=== PATIENT | male | born 1965 | race Caucasian/White ===

== ENCOUNTER 2020-02-12 11:34 | Outpatient (CLI) | payer BC, SELFPAY ==
--- NOTE | ~2020-02-12 | XR_ITS ---
EXAMINATION: XR knee LT 3V DATE: 02/12/2020 11:49 INDICATION: Left knee pain, initial encounter TECHNIQUE: Three views of the left knee were obtained. COMPARISON: None. FINDINGS: Alignment is normal. No fracture or osteochondral lesion. There is mild tricompartmental os teoarthritis characterized by tiny marginal osteophytes. There is a moderate size knee joint effusion . An enthesophyte projects from the cranial pole of the patella. Soft tissues are unremarkable. IMPRESSION: 1. No acute osseous abnormality. Reviewed, dictated and finalized at location A.
== END 2020-02-12 11:35 | disposition home or self-care (01) ==
LOC: ANHIMG 11:38
PROVIDERS: PCP Family Medicine; Visit Provider Nurse Practitioner Family
DX: M25.562 Pain in left knee (principal)
CPT/HCPCS: 73562

== ENCOUNTER 2020-07-30 00:30 | Outpatient (CLI) | payer BC, SELFPAY ==
[2020-07-30 18:59] LABS: SARS-CoV-2 RNA PCR Negative
== END 2020-07-30 00:31 | disposition home or self-care (01) ==
LOC: ANHCOVIDDT 00:30
PROVIDERS: PCP Family Medicine; Visit Provider Internal Medicine Gastroenterology
DX: Z01.812 Encounter for preprocedural laboratory examination (principal); Z20.828 Contact with and (suspected) exposure to other viral communicable diseases
CPT/HCPCS: 87635; C9803; U0003

== ENCOUNTER 2020-08-02 00:50 | Day surgery (SDC) | payer BC, SELFPAY ==
[2020-07-26 14:06] VITALS: BMI 27.1
[2020-08-02 08:34] VITALS: BMI 26.6
[2020-08-02 08:38] VITALS: BP 127/92; PULSE 67; RESP 14; TEMP 36.4; O2SAT 98
--- NOTE | 2020-08-02 08:40 | WPDANESEPPF ---
Anes - Initial Pre Proc Eval Procedure: Operation Date: 08/02/20 09:30 Proposed Procedures p Screening Colonoscopy - Koko Stokes MD Date/Time: 08/02/20 08:40 Surgeon: Koko Stokes MD Pre Op Diagnosis: Neoplasm Screening Patient Data Age: 55 Gender: M Height: 6 ft Weight: 89.1 kg Allergies Allergy/AdvReac Type Severity Reaction Status Date / Time Penicillins Allergy Unknown Hives Verified 08/02/20 08:32 Home Medications Medication Instructions Recorded Confirmed Type tadalafil 20 mg tablet 20 mg PO DAILY PRN #30 tablet 09/03/19 08/02/20 Rx Patient hx anesthesia problems: none Family hx anesthesia problems: none PMFSH Past Medical History Medical History (Updated 07/04/20 @ 11:26 by Chilo Rivera MD) Onychomycosis Screen for colon cancer Screening for prostate cancer Tinea pedis Family History Family History Mother Family history of pancreatic cancer Patient's mother is Other Hypertension Social History Social History Smoking status: Never smoker Alcohol intake: current Drinks per week: 6 Substance use: current Substance use type: marijuana Other substance usage details: 2-3 times a month smokes marijuana Living arrangements: alone Spiritual care concerns: No Anes - Eval Final PreProcedure Day of Procedure 08/02/20 08:40 Patient weight: normal Heart: regular rate and rhythm Lungs: clear to auscultation Airway: Mallampati scale class II Neurological: alert and oriented Last oral intake: >/= 8 hours ASA classification: II Emergent: no Anesthetic plan: proceed Anesthesia type and monitoring: general GIVS and standard monitoring Informed Consent: The patient's anesthetic plan and its attendant risks and benefits were discussed with the patient/family/POA. Questions were solicited and answers provided to the satisfaction of the patient/family/POA.
[2020-08-02] MEDS: LACTATED RINGERS 1,000 ML 150 ML IV CONT (08:47)
--- NOTE | 2020-08-02 09:14 | PM.HPGS ---
History of Present Illness History of Present Illness Consent: Risks, benefits, and alternatives have been discussed and questions answered. Patient agrees to proceed with procedure. Chief complaint: Neoplasm Screening Narrative: Lex Morales is a 55 year old male here for screening colonoscopy Review of Systems Constitutional: Constitutional: Denies headache(s) and Denies weakness Eyes: Eyes: Denies blurry vision ENT: Reports Normal hearing present, Denies headache(s) and Denies neck pain Cardiovascular: Cardiovascular: Denies chest pain and Denies dyspnea Respiratory: Respiratory: Denies dyspnea Gastrointestinal: Gastrointestinal: Reports no additional gastrointestinal complaints Genitourinary: Genitourinary: Denies dysuria Musculoskeletal: Musculoskeletal: Denies neck pain Integumentary/Breasts: Skin/Breast: Denies dry skin Neurologic: Reports Normal hearing present, Denies headache(s) and Denies weakness Psychiatric: Psychiatric: Denies anxiety Endocrine: Endocrine: Denies change in body appearance Hematologic/Lymphatic: Hematologic/Lymphatic: Denies easy bleeding Allergic/Immunologic: Allergic/Immunologic: Denies urticaria PMF Past Medical History Medical History (Updated 07/04/20 @ 11:26 by Chiol Rivera MD) Onychomycosis Screen for colon cancer Screening for prostate cancer Tinea pedis Family History Family History Mother Family history of pancreatic cancer Patient's mother is Other Hypertension Social History Social History Smoking status: Never smoker Alcohol intake: current Drinks per week: 6 Substance use: current Substance use type: marijuana Other substance usage details: 2-3 times a month smokes marijuana Living arrangements: alone Spiritual care concerns: No Meds Home Medications and Allergies Home Medications Medication Instructions Recorded Confirmed Type tadalafil 20 mg tablet 20 mg PO DAILY PRN #30 tablet 09/03/19 08/02/20 Rx Allergies Allergy/AdvReac Type Severity Reaction Status Date / Time Penicillins Allergy Unknown Hives Verified 08/02/20 08:32 Vital Signs Vital Signs - 24 hr 08/02/20 08:38 Temperature 97.5 F L Pulse Rate 67 Respiratory Rate 14 Blood Pressure 127/92 H Pulse Oximetry 98 Exam Const: General: comfortable and no acute distress HENMT: General nose exam: Normal nares present Eyes: General: appearance normal, both eyes and all related structures Neck: Neck: no JVD Resp: Auscultation: clear to auscultation bilaterally Cardio: Rate: regular rate Rhythm: regular rhythm GI: Inspection: non-distended GI Palp: Yes Soft to palpation Skin: General skin exam: normal color Neuro: General: gait normal Speech: normal speech Extrem: General: normal to inspection Psych: Mental Status: mental status grossly normal Assessment and Plan Assessment and plan (1) Screen for colon cancer: Code(s): Z12.11 - Encounter for screening for malignant neoplasm of colon Status: Acute Assessment and Plan: will proceed with colonoscopy
[2020-08-02 09:40] VITALS: BP 98/63; PULSE 66; RESP 18; O2SAT 97
[2020-08-02 09:50] VITALS: BP 109/68; PULSE 66; RESP 21; O2SAT 97
[2020-08-02 10:00] VITALS: BP 129/81; PULSE 61; RESP 16; O2SAT 100
== END 2020-08-02 10:14 | disposition home or self-care (01) ==
PROVIDERS: PCP Family Medicine; Visit Provider Internal Medicine Gastroenterology
PROC: 0DJD8ZZ Inspection of Lower Intestinal Tract, Via Natural or Artificial Opening Endoscopic (ICD-10-PCS; CPT 45378; principal; 2020-08-02 09:30)
DX: Z12.11 Encounter for screening for malignant neoplasm of colon (principal); K64.8 Other hemorrhoids; F12.90 Cannabis use, unspecified, uncomplicated
CPT/HCPCS: 45378; J2704; J7120

== ENCOUNTER 2021-12-08 10:35 | Outpatient (CLI) | payer BC, SELFPAY ==
--- NOTE | ~2021-12-08 | XR_ITS ---
XR lumbar spine 6V w bending DATE: 12/08/2021 10:59 INDICATION: Low back pain TECHNIQUE: AP, lateral, coned lateral lumbosacral and bilateral oblique views. Flexion and extension lateral views. COMPARISON: None FINDINGS: There is mild dextroscoliosis of the lower thoracic and lumbar spine. The lumbar pedicles are intact. No fracture or bone destruction, spondylolysis or spondylolisthesis. There is mild degenerative disc disease at L1-2, L2-3 and L3-4. L4-5 and L5-S1 interspaces are well preserved. No instability on flexion or extension. The sacroiliac joints appear normal. IMPRESSION: Mild degenerative disc disease at L1-2, L2-3 and L3-4 Reviewed, dictated and finalized at location B. SROOM SUPERVISOR
== END 2021-12-08 10:36 | disposition home or self-care (01) ==
PROVIDERS: PCP Family Medicine; Visit Provider Family Medicine
DX: G89.29 Other chronic pain (principal); M54.50 Low back pain, unspecified; M51.36 Other intervertebral disc degeneration, lumbar region
CPT/HCPCS: 72114

== ENCOUNTER 2024-03-20 08:55 | Outpatient (CLI) | payer BC, SELFPAY | END 2024-03-20 08:56 | disposition home or self-care (01) | LOC: ANHIMG 08:56 | PROVIDERS: PCP Family Medicine; Visit Provider Physician Assistant Medical | DX: M25.561 Pain in right knee (principal) | CPT/HCPCS: 73562 ==

== ENCOUNTER 2024-09-09 10:12 | Outpatient (CLI) | payer BC, SELFPAY ==
--- NOTE | ~2024-09-09 | XR_ITS ---
EXAMINATION: XR hand LT 2V DATE: 09/09/2024 10:35 INDICATION: Left hand injury TECHNIQUE: Posteroanterior and lateral views of the left hand were obtained. COMPARISON: None. FINDINGS: Alignment is normal. No fracture. Moderate to severe osteoarthritis with couple adjacent loose osteoc hondral bodies at the first carpometacarpal joint. Additional mild osteoarthritis at multiple interph alangeal joints with distal predominance. Soft tissues are unremarkable. IMPRESSION: 1. No acute osseous abnormality. 2. 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 Reviewed, dictated and finalized at location B. ARGE MILL OPERATOR IMPRESSION: 1. No acute osseous abnormality. 2. Polyarticular osteoarthritis, moderate to severe at the first carpometacarpa l joint and otherwise mild.
== END 2024-09-09 10:13 | disposition home or self-care (01) ==
PROVIDERS: PCP Family Medicine; Visit Provider Nurse Practitioner Adult Health
DX: S69.92XA Unspecified injury of left wrist, hand and finger(s), initial encounter (principal); M19.042 Primary osteoarthritis, left hand; X58.XXXA Exposure to other specified factors, initial encounter
CPT/HCPCS: 73120

== ENCOUNTER 2024-09-14 09:57 | Outpatient (CLI) | payer BC, SELFPAY ==
--- NOTE | ~2024-09-14 | MR_ITS ---
EXAMINATION: MR knee RT wo con DATE: 09/14/2024 10:29 INDICATION: Right knee pain TECHNIQUE: Magnetic resonance imaging (MRI) of the right knee was performed without intravenous contr ast. Sequences included coronal PD-weighted FSE, coronal PD-weighted FS FSE, sagittal T2-weighted FS E, sagittal PD-weighted FS FSE and axial PD weighted fat saturated FSE. COMPARISON: None. FINDINGS: Medial compartment: Complex tear extending from the anterior free edge to the peripheral third of the posterior horn of t he medial meniscus. There is partial thickness chondral ulceration and subchondral surface regularity along the anterior to central weightbearing medial femoral condyle but without degenerative subchond ral changes. Additional partial-thickness chondral ulceration along the anterior aspect medial tibial plateau. Lateral compartment: Lateral meniscus is normal. Deep chondral fissure extending anteroposteriorly centered at the junctio n of the anterior to central weightbearing lateral femoral condyle involving greater than 50% the car tilage thickness but without degenerative subchondral changes. More subtle chondral fissuring also wi thout degenerative subchondral changes along the posterior margin of the lateral tibial plateau. Patellofemoral compartment: Deep chondral fissuring with a few small foci of underlying subchondral edema-like signal change at t he lateral talar facet. Partial-thickness chondral ulceration without degenerative subchondral change s at the inferior aspect of the medial trochlea. Partial-thickness ulceration along the trochlear viv ove deepest inferiorly where there are small central subchondral osteophytes. Ligaments and tendons: Anterior and posterior cruciate ligaments are normal. The medial collateral ligament and fibular herrera ateral ligament complex are normal. Mild distal quadriceps tendinopathy without tear. Patellar tendon is normal. The visualized medial and lateral hamstring tendons as well as the iliotibial band are no rmal. Fluid: Physiologic amount of fluid in the joint space. No loose osteochondral bodies identified. Osseous/other: Bone marrow signal aside from the previous noted small foci of subarticular edema-like signal change at the lateral patellar facet. No fracture or pathologic marrow replacing process. IMPRESSION: 1. Complex tear at the posterior horn of the medial meniscus. 2. Mild tricompartmental osteoarthritis with moderate grade chondromalacia in the medial lateral comp artments and moderate and high-grade chondromalacia at the patellofemoral compartment. Reviewed, dictated and finalized at location A. SWAIN MATE IMPRESSION: 1. Complex tear at the posterior horn of the medial meniscus. 2. Mild tricompartmental osteoarthritis with moderate grade chondromalacia in t he medial lateral compartments and moderate and high-grade chondromalacia at th e patellofemoral compartment.
== END 2024-09-14 09:58 | disposition home or self-care (01) ==
PROVIDERS: PCP Family Medicine; Visit Provider Nurse Practitioner Family
DX: S83.231A Complex tear of medial meniscus, current injury, right knee, initial encounter (principal); M17.11 Unilateral primary osteoarthritis, right knee; M22.41 Chondromalacia patellae, right knee
CPT/HCPCS: 73721

== ENCOUNTER 2024-10-12 00:48 | Day surgery (SDC) | payer BC, SELFPAY ==
[2024-10-05 10:21] VITALS: BMI 29.5
--- NOTE | 2024-10-05 10:30 | PC.NURSE ---
Report to the Outpatient Waiting Room, entrance under the green pavilion located off [facility], at time _08:30am on date _10/12/24 . Planned Procedure Time: __10:30am .? Time changes happen often and if your time is changed the preop area will call you the afternoon before. - You and your visitor will be asked to self-screen and do not enter if you have any COVID symptoms. Please call surgeon if you need to reschedule. - A mask is optional within the hospital at this time. Patients may have clear liquids (water, carbonated beverages, clear teas, apple juice) until 3 hours prior to surgery with a maximum of 20 ounces. - No food from midnight until time of surgery and no smoking. This includes no chewing gum, candy or mints. (07:30am) Take only the following medications with a SIP of water on the morning of surgery: ____None DO NOT STOP ANY OF YOUR OTHER PRESCRIPTION MEDICATIONS PRIOR TO SURGERY EXCEPT THE FOLLOWING Medications to discontinue per physician ____Hold all vitamins & Supplements 3 days prior per Anesthesia Date to take last dose 10/08/24 Please no make-up, nail ethiopian, hairspray, perfume, deodorant, or body powder the day of surgery.? No jewelry (including any body piercings) or valuables the day of surgery, leave them at home.? Please take a shower or bath the night before, or the morning of, surgery with an antibacterial soap.? Wear comfortable, loose fitting clothing.? - Jewelry must be removed prior to entering the operating room.? Rings and piercings that are not removed may be cut off. - The hospital will not accept responsibility for valuables.? - Please leave all valuables, including medications, at home the day of surgery. If you are going home after surgery, a licensed commercial collections driver must drive you home.? - NO public transportation without another adult if you receive anesthesia. - We recommend that an adult stay with you for 24 hours following discharge. - We also recommend that you do not drive, make important decision, drink alcoholic beverages, or take any drugs that were not prescribed by your health care provider for at least 24 hours after your discharge time. Follow any additional instructions given to you from your surgeon. Telephone instructions given to ____patient and asked if any additional questions and then verbalized understanding. Patient advised to call surgeon office or pre surgery nurse liaison [phone] if any additional questions.
--- NOTE | 2024-10-10 08:29 | P.HP_ITS ---
H&P: HPI History of Present Illness Date/Time: 10/10/24 08:29 Chief Complaint: Patient has catching an locking of his Right knee. He has mechanical symptoms and has failed conservative treatment. Review of Systems Musculoskeletal: Musculoskeletal: Reports arthralgias, Reports joint swelling and Reports limited range of motion [facility] Past Medical History Medical History (Updated 09/29/24 @ 13:52 by JAVED Marshall) Lipid screening Thumb injury Posterior right knee pain Eyelid abnormality Changing skin lesion Plantar fasciitis of right foot Insomnia Low back pain Screening for diabetes mellitus Screening for thyroid disorder Elevated hemoglobin Screen for colon cancer Screening for prostate cancer Onychomycosis Tinea pedis Surgical History Surgical History Hx of rotator cuff surgery Status post surgical removal of nail matrix of toe Family History Family History (Updated 09/29/24 @ 11:07 by Jenny Kennedy CMA) Mother Family history of pancreatic cancer Father Malignant neoplasm of prostate Sibling Hypertension Cerebrovascular accident Social History Social History (Updated 09/29/24 @ 10:59 by Laura Almaraz CMA) Smoking status: Never smoker Second hand tobacco smoke exposure: No Alcohol intake: current Drinks per week: 3 Alcohol use details: vodka 2-3 week Substance use: current Substance use type: marijuana Other substance usage details: smoke and gummies occasioinaly weeklyl Current Housing: Decline to Answer Concerned About Future Housing: Decline to Answer Difficulty Paying Gas/Electric Bills: Decline to Answer Difficulty Paying for Meds: Decline to Answer Currently Unemployed: Decline to Answer Education: Decline to Answer Difficulty w/ Childcare or Family Care: Decline to Answer Living arrangements: alone Occupation/Education: retired 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[email or web address] Gender identity (if verbalized by the patient): Male Spiritual care concerns: No Meds Home Medications and Allergies Home Medications ?Medication ?Instructions ?Recorded ?Confirmed ?Type tadalafil 20 mg tablet (Cialis) 20 mg PO DAILY PRN sexual activity 09/24/23 10/05/24 Rx #30 tabs testosterone undecanoate 200 mg 200 mg PO QAM AND QPM 04/10/24 10/05/24 History capsule minoxidil 2.5 mg tablet 2.5 mg PO DAILY hair loss #90 tabs 07/05/24 10/05/24 Rx Allergies Allergy/AdvReac Type Severity Reaction Status Date / Time Penicillins Allergy Mild Hives Verified 10/05/24 10:19 Exam Narrative: Patient has catching and locking of his right knee. He has mechanical symptoms. Neurologically he is intact. He has a positive Ric's and joint line tende rness. Eyes: General: appearance normal, both eyes and all related structures Neck: Neck: supple Resp: Effort & Inspection: normal respiratory effort Cardio: Rate: regular rate Rhythm: regular rhythm Hand X-Ray 09/09/24 Knee X-Ray 09/29/24 Knee MRI 09/14/24 Orthopedics Result Report 09/29/24 Lumbar Spine X-Ray 12/08/21 Assessment and Plan Assessment and plan (1) Acute meniscal tear of knee: Code(s): S83.209A - Unspecified tear of unspecified meniscus, current injury, unspecified knee, initial encounter Status: Acute Assessment and Plan: Patient has a meniscal tear RIGHT. He has mechanical symptoms and has failed nonoperative treatment. he would like to proceed with Arthroscopy, Partial Meniscectomy, Proceed as indicated. I discussed risks, benefits, limitations and alternatives in detail. He agrees and understands.
[2024-10-12] VITALS (9 sets, daily range): BP systolic 104–144; BP diastolic 62–97; PULSE 64–92; RESP 13–17; TEMP 36.1–36.2; O2SAT 97–100
--- NOTE | 2024-10-12 08:58 | WPDHPUPDATE1 ---
History and Physical Update Update Date/Time: 10/12/24 08:58 History and Physical has been reviewed, including an updated exam of the patient. There are NO changes in the patient's condition. Risks, benefits, and alternatives have been discussed and questions answered. Patient agrees to proceed with procedure. Patient understands that this wont change his underlying arthritis.
[2024-10-12] MEDS: ACETAMINOPHEN 500 MG TABLET 1000 MG PO (09:15)
[2024-10-12] MEDS: KETOROLAC 15 MG/ML VIAL (*BKC) IV PUSH (09:20)
[2024-10-12] MEDS: LACTATED RINGERS 1,000 ML 30 ML IV CONT (09:20)
--- NOTE | 2024-10-12 09:32 | P.PNAN_ITS ---
Anes - Initial Pre Proc Eval Procedure: Operation Date: 10/12/24 10:30 Proposed Procedures p Right Knee Arthroscopy, Partial Medial Meniscectomy, Proceed As Indicated - Usama Abrams MD Date/Time: 10/12/24 09:32 Surgeon: Usama Abrams MD Pre Op Diagnosis: Rt Medial Meniscus Tear Patient Data Age: 59 Gender: M Height: 1.78 m Weight: 93.4 kg Allergies Allergy/AdvReac Type Severity Reaction Status Date / Time Penicillins Allergy Mild Hives Verified 10/05/24 10:19 Home Medications ?Medication ?Instructions ?Recorded ?Confirmed ?Type tadalafil 20 mg tablet (Cialis) 20 mg PO DAILY PRN sexual activity 09/24/23 10/05/24 Rx #30 tabs testosterone undecanoate 200 mg 200 mg PO QAM AND QPM 04/10/24 10/05/24 History capsule minoxidil 2.5 mg tablet 2.5 mg PO DAILY hair loss #90 tabs 07/05/24 10/05/24 Rx Patient hx anesthesia problems: none Family hx anesthesia problems: none Results Review: All pre-operative results and documents have been reviewed as part of the pre- operative evaluation. [facility] Past Medical History Medical History Lipid screening Thumb injury Posterior right knee pain Eyelid abnormality Changing skin lesion Plantar fasciitis of right foot Insomnia Low back pain Screening for diabetes mellitus Screening for thyroid disorder Elevated hemoglobin Screen for colon cancer Screening for prostate cancer Onychomycosis Tinea pedis Surgical History Surgical History Hx of rotator cuff surgery Status post surgical removal of nail matrix of toe Family History Family History Mother Family history of pancreatic cancer Father Malignant neoplasm of prostate Sibling Hypertension Cerebrovascular accident Social History Social History Smoking status: Never smoker Second hand tobacco smoke exposure: No Alcohol intake: current Drinks per week: 6 Substance use: current Substance use type: marijuana Other substance usage details: 2-3 times a month smokes marijuana Current Housing: Decline to Answer Concerned About Future Housing: Decline to Answer Difficulty Paying Gas/Electric Bills: Decline to Answer Difficulty Paying for Meds: Decline to Answer Currently Unemployed: Decline to Answer Education: Decline to Answer Difficulty w/ Childcare or Family Care: Decline to Answer Living arrangements: alone Occupation/Education: retired 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 Informed Consent: The patient's anesthetic plan and its attendant risks and benefits were discussed with the patient/family/POA. Questions were solicited and answers provided to the satisfaction of the patient/family/POA.
[2024-10-12] MEDS: ceFAZolin 2 GM/D5W 50 ML 2 GM/50 ML BAG IVPB (09:54)
[2024-10-12] MEDS: LIDO 1%/EPINEPHRINE 1:100,000 50 ML VIAL 30 ML INFILTRATE (10:16)
--- NOTE | 2024-10-12 10:23 | W.PM.PROC2 ---
Procedure Note - Detailed Date of Procedure 10/12/24 Pre-op Diagnosis RIGHT Medial Meniscus Tear Post-op Diagnosis Same Procedure Performed RIGHT knee arthroscopy with partial meniscectomy Surgeon Usama Abrams MD Anesthesia General Description of Procedure Patient brought to operating room # 7. An anesthetic was administered. The knee was sterilely prepped and draped in the usual manner. Standard portals were used. Superior medial portal was used for the outflow cannula, inferior lateral portal was used for the scope, inferior medial portal was used for the instruments. Arthroscopy was performed, the patellar femoral joint degenerative changes. The medial compartment showed a complex tear. The lateral compartment showed fraying. The ACL was intact. Using baskets and eliot the meniscal tear was trimmed back to a stable base so the nothing further could be pulled into the joint. Any loose or delaminated fragments were gently trimmed to a stable base. At this point the instruments were withdrawn, sutures placed and patient left the operating room in satisfactory condition. Grade 3 changes were seen throughout the knee. Estimated Blood Loss 20 Drains No Packing No Pathology None sent Complications No immediate complications Condition Stable Disposition PACU [facility] Billing Surgery - Charge Forward: Surgery Billing ([id number] Arthroscopy, Partial Meniscectomy)
== END 2024-10-12 12:25 | disposition home or self-care (01) ==
PROVIDERS: PCP Family Medicine; Visit Provider Orthopaedic Surgery
PROC: (CPT 29870; principal; 2024-10-12 10:30)
DX: M23.331 Other meniscus derangements, other medial meniscus, right knee (principal); F12.90 Cannabis use, unspecified, uncomplicated
CPT/HCPCS: 29881; A9270; J0690; J1100; J1885; J2003; J2004; J2250; J2270; J2405; J2704; J7120

== ENCOUNTER 2024-12-18 10:37 | Outpatient (CLI) | payer BC, SELFPAY | END 2024-12-18 10:38 | disposition home or self-care (01) | PROVIDERS: PCP Orthopaedic Surgery; Visit Provider Orthopaedic Surgery | DX: S83.231A Complex tear of medial meniscus, current injury, right knee, initial encounter (principal); M17.11 Unilateral primary osteoarthritis, right knee; M94.261 Chondromalacia, right knee; S76.111A Strain of right quadriceps muscle, fascia and tendon, initial encounter; X58.XXXA Exposure to other specified factors, initial encounter | CPT/HCPCS: 73721 ==